=== PATIENT | male | born 1995 | race Caucasian/White ===

== ENCOUNTER 2017-10-25 21:44 | Emergency (ER) | payer OTHER ==
[2017-10-25] MEDS ORDERED: Acetaminophen TAB* 325 MG PO ONE (21:58)
[2017-10-25] MEDS ORDERED: Ibuprofen TAB* 800 MG PO ONE (21:58)
[2017-10-25] MEDS ORDERED: Oseltamivir CAP* 75 MG CAP PO ONE (22:34)
[2017-10-25 22:53] VITALS: BP 118/73
--- NOTE | 2017-10-28 04:41 | ED ---
Cassy Carvalho Abhishek, scribed for Angeli Rojas MD on 10/25/17 at 2320 . HPI Febrile Illness - HPI Summary HPI Summary: This patient is a 22 year old M presenting to [facility] with a chief complaint of fever of (103.7) since earlier today. The patient rates the pain 4/10 in severity. Symptoms aggravated by nothing. Symptoms alleviated by Advil. Patient reports coughing. Patient denies diarrhea, and vomiting. Pt has taken advil at home earlier today at 1100 (3) and 2 more half hour ago. Other medications reviewed and reported. Pt is currently a student at [employer]. - History of Current Complaint Chief Complaint: EDFluSymptoms Time Seen by Provider: 10/25/17 21:51 Hx Obtained From: Patient Onset/Duration: Started Hours Ago Timing: Constant Initial Severity: Mild Current Severity: Mild Pain Intensity: 3 Pain Scale Used: 0-10 Numeric Associated Signs and Symptoms: Cough - Allergy/Home Medications Allergies/Adverse Reactions: Allergies Allergy/AdvReac Type Severity Reaction Status Date / Time No Known Allergies Allergy Verified 10/25/17 21:47 PMH/Surg Hx/FS Hx/Imm Hx Previously Healthy: Yes Respiratory History: Reports: Hx Asthma Sensory History: Denies: Hx Legally Blind Opthamlomology History: Denies: Hx Legally Blind, Hx Vision Problem EENT History: Denies: Hx Deafness, Hx Hearing Aid Infectious Disease History: No Infectious Disease History: Denies: Traveled Outside the [place] in Last 30 Days - Family History Known Family History: Positive: None Family History: Pt's FHx reviewed and noncontributory - Social History Occupation: Student Lives: Dormitory/Roommates Alcohol Use: Rare Hx Substance Use: No Substance Use Type: Reports: None Smoking Status (MU): Never Smoked Tobacco Review of Systems Positive: Fever - 103.7 Eyes: Negative ENT: Negative Cardiovascular: Negative Respiratory: Other - coughing Negative: Vomiting, Diarrhea Genitourinary: Negative Musculoskeletal: Negative Skin: Negative Neurological: Negative Psychological: Normal All Other Systems Reviewed And Are Negative: Yes Physical Exam - Summary Physical Exam Summary: VITAL SIGNS: Reviewed. GENERAL: ~Patient is a well-developed and nourished (MALE) who is lying comfortable in the stretcher. Patient is not in any acute respiratory distress. HEAD AND FACE: No signs of trauma. No ecchymosis, hematomas or skull depressions. No sinus tenderness. EYES: PERRLA, EOMI x 2, No injected conjunctiva, no nystagmus. EARS: Hearing grossly intact. Ear canals and tympanic membranes are within normal limits. MOUTH: Oropharynx within normal limits. NECK: Supple, trachea is midline, no adenopathy, no JVD, no carotid bruit, no c- spine tenderness, neck with full ROM. CHEST: Symmetric, no tenderness at palpation LUNGS: Clear to auscultation bilaterally. No wheezing or crackles. CVS: Regular rate and rhythm, S1 and S2 present, no murmurs or gallops appreciated. ABDOMEN: Soft, non-tender. No signs of distention. No rebound no guarding, and no masses palpated. Bowel sounds are normal. EXTREMITIES: FROM in all major joints, no edema, no cyanosis or clubbing. NEURO: Alert and oriented x 3. No acute neurological deficits. Speech is normal and follows commands. SKIN: Dry and warm Triage Information Reviewed: Yes Vital Signs On Initial Exam: Initial Vitals Temp Pulse Resp BP Pulse Ox 100.0 F 100 16 120/67 97 10/25/17 21:45 10/25/17 21:45 10/25/17 21:45 10/25/17 21:45 10/25/17 21:45 Vital Signs Reviewed: Yes Diagnostics - Vital Signs Vital Signs Temp Pulse Resp BP Pulse Ox 10/25/17 22:52 98.9 F 93 18 118/73 99 10/25/17 21:45 100.0 F 100 16 120/67 97 - Laboratory Lab Results: Lab Results 10/25/17 Range/Units 22:10 Influenza A (Rapid) Positive H (Negative) Influenza B (Rapid) Negative (Negative) Lab Statement: Any lab studies that have been ordered have been reviewed, and results considered in the medical decision making process. Course/Dx - Course Course Of Treatment: The pt is a 22 y/o M with a CC of fever of 103.7. The pt also reports coughing and denies vomiting and diarrhea. Medication reviewed and the patient was given: Acetaminophen, ibuprofen and oseltamivir. The pt was given an influenza test and resulted in positive findings. The pt will be d/c home with a dx of influenza A. - Diagnoses Provider Diagnoses: Influenza A Discharge - Discharge Plan Condition: Stable Disposition: HOME Prescriptions: Ibuprofen TAB* [Motrin TAB* 800 MG] 800 mg PO Q6H PRN #30 tab PRN Reason: Fever/Pain Oseltamivir CAP* [Tamiflu CAP*] 75 mg PO BID #10 cap Patient Education Materials: Influenza (ED) Referrals: [facility] [place] [Primary Care Provider] - (Follow up with PCP within 2 to 3 days) Additional Instructions: RETURN TO EMERGENCY DEPARTMENT FOR ANY NEW OR WORSENING SYMPTOMS The documentation as recorded by the Cassy anna Abhishek accurately reflects the service I personally performed and the decisions made by Bob fink Abdul, MD.
== END 2017-10-25 22:52 | disposition home or self-care (01) ==
LOC: ED 21:44
DX: J10.1 Influenza due to other identified influenza virus with other respiratory manifestations (principal); J45.909 Unspecified asthma, uncomplicated
CPT/HCPCS: 87502; 99284; A9270-GY